=== PATIENT | male | born 1970 | race Caucasian/White ===

== ENCOUNTER 2017-02-24 15:35 | Emergency (ER) | payer BC ==
[~2017-02-24] VITALS: Ht 175.3 cm; Wt 110.5 kg
[2017-02-24 15:40] VITALS: BP 160/88; PULSE 63; TEMP 97.9
[2017-02-24] MEDS ORDERED: NORCO 325 MG-51 TAB PO (16:19)
[2017-02-24] MEDS ORDERED: PEN-VEE K500 MG PO ×2 (16:19→16:52)
== END 2017-02-24 16:43 | disposition home or self-care (01) ==
LOC: COL.ER 15:35
DX: K08.89 Other specified disorders of teeth and supporting structures (principal); F17.220 Nicotine dependence, chewing tobacco, uncomplicated